=== PATIENT | female | born 1935 | race Two or more races ===

== ENCOUNTER → 2017-07-23 | Outpatient (CLI) | payer MEDICARE, MEDICAID ==
--- NOTE | 2017-07-23 14:47 | RADIOLOGY REPORT (SQ) ---
EXAM DESCRIPTION: BARIUM ENEMA W/AIR COMPLETED DATE/TIME: 07/23/2017 11:28 am REASON FOR STUDY: INCOMOPLETE COLONOSCOPY (Z53.9) Z53.9 PROCEDURE AND TREATMENT NOT CARRIED OUT, UN SPECIFIED R COMPARISON: None. FLUOROSCOPY TIME: 3.2 MINUTES 17 FLUOROSCOPY images saved to PACS. TECHNIQUE: Following retrograde filling of the colon with barium and air, fluoroscopic spot and over head imaging of the colon was obtained and saved to PACS. LIMITATIONS: None. FINDINGS: LACQUER COATER KUB: Normal abdominal film with adequate bowel prep. Surgical bridgett and surgical suture line overlying the lower pelvis. CECUM: Normal mucosa without intraluminal filling defects, intrinsic or extrinsic masses, or lesions. ASCENDING COLON: Normal mucosa without intraluminal filling defects, intrinsic or extrinsic masses, o r lesions. TRANSVERSE COLON: Normal mucosa without intraluminal filling defects, intrinsic or extrinsic masses, or lesions. DESCENDING COLON: A few small to moderate sized scattered diverticula. Normal mucosa without intralu dilcia filling defects, intrinsic or extrinsic masses, or lesions. SIGMOID COLON: A few small scattered diverticula. Normal mucosa without intraluminal filling defects , intrinsic or extrinsic masses, or lesions. RECTUM: Normal mucosa without intraluminal filling defects, intrinsic or extrinsic masses, or lesions . POST EVAC: Near complete evacuation of barium with no additional findings. OTHER: No other significant finding. IMPRESSION: DIVERTICULOSIS DESCENDING AND SIGMOID COLON. OTHERWISE, NORMAL AIR CONTRAST BARIUM ENEM A. COMMENT: Quality ID [id number]: Final reports for procedures using fluoroscopy that document radiation exp osure indices, or exposure time and number of fluorographic images (if radiation exposure indices are not available) TECHNICAL DOCUMENTATION: JOB ID: [id number] [employer]- All Rights Reserved Reading location - IP/workstation name: [email or web address]
== END ==
LOC: RAD 09:03
PROVIDERS: ATTEND Internal Medicine Gastroenterology
DX: Z53.9 Procedure and treatment not carried out, unspecified reason (principal)
CPT/HCPCS: 74280